=== PATIENT | female | born 1990 | race Two or more races ===

== ENCOUNTER 2021-06-30 09:22 | Observation (INO) | payer MEDICAID ==
[~2021-06-30] VITALS: Ht 157.5 cm; Wt 69.9 kg
[~2021-06-30 09:22] MED LIST: PREN1TAB71 OR
[2021-06-30 10:39] LABS: Urine WBC None Seen /hpf (0 - 5)
[2021-06-30 11:14] LABS: Urine Bacteria NONE SEEN /hpf (None Seen); Urine Blood Negative /uL (Negative); Urine Mucus FEW (None Seen); Urine Specific Gravity 1.005 (1.001-1.035)
== END 2021-06-30 10:31 | disposition home or self-care (01) ==
LOC: LDRP 09:22
PROVIDERS: ADMIT Obstetrics & Gynecology; ATTEND Obstetrics & Gynecology
DX: O99.891 Other specified diseases and conditions complicating pregnancy (principal); M54.9 Dorsalgia, unspecified; R10.9 Unspecified abdominal pain; Z3A.24 24 weeks gestation of pregnancy
CPT/HCPCS: 59025; 81001; 81002; 87086; 94760; G0378; G0379

== ENCOUNTER 2021-10-17 08:47 | Inpatient (IN) | payer MEDICAID ==
[~2021-10-17] VITALS: Ht 154.9 cm; Wt 78.9 kg
[2021-10-17] MEDS ORDERED: LACT. RINGERS/OXYTOCIN 20UNITS 500 ML IV ONE ×2 (14:30→15:00)
[2021-10-17] MEDS ORDERED: LACTATED RINGER'S 1,000 ML IV SCH (14:30)
[2021-10-17] MEDS ORDERED: PHISODERM TOP SOLN 240ML BTL TOP PRN (14:30)
[2021-10-17] MEDS ORDERED: LIDOCAINE 2%HCL (LOCAL ANESTH.) INJ 20ML MDV IJ PRN (14:30)
[2021-10-17] MEDS ORDERED: WITCH HAZEL-GLYCERIN PAD TOP PRN (14:30)
[2021-10-17 15:46] LABS: Urine Bacteria NONE SEEN /hpf (None Seen); Urine Blood Negative /uL (Negative); Urine Mucus FEW (None Seen); Urine Specific Gravity 1.022 (1.001-1.035); Urine WBC 1 /hpf (0 - 5)
[2021-10-17 15:47] LABS: Basophils # (auto) 0 10 ^3/uL (0-0.2); Basophils % (auto) 0.2 % (0.0-2.0); Eosinophils # (auto) 0 10 ^3/uL (0-0.8); Eosinophils % (auto) 0.2 % (0.0-7.0); Hematocrit 36.9 % (36.0-46.0); Hemoglobin 12.3 g/dL (12.2-16.2); Lymphocytes % (auto) 15.2 % (10.0-50.0); Mean Corpuscular Hemoglobin 30.6 pg (28.0-32.0); Mean Corpuscular Hgb Conc. 33.2 g/dL (32.0-36.0); Mean Corpuscular Volume 92.3 fL (80.0-100.0); Monocytes # (auto) 0.6 10 ^3/uL (0-1.3); Monocytes % (auto) 4.7 % (0.0-12.0); Neutrophils # (auto) 10.6 10 ^3/uL (1.6-8.6); Neutrophils % (auto) 79.7 % (37.0-80.0); Red Cell Distribution Width 14.7 % (11.8-14.3); White Blood Cell 13.3 10^3/uL (4.4-10.8)
[2021-10-17 15:59] LABS: INR 0.9 (0.9-1.15); Partial Thromboplastin Time 26.8 sec (23.6-33.0)
[2021-10-17 16:05] LABS: Albumin 2.9 g/dL (3.4-5.0); Calcium 8.6 mg/dL (8.5-10.1); Potassium 3.6 mmol/L (3.5-5.1)
[2021-10-17 16:08] LABS: BUN/Creatinine Ratio 13.3; Bilirubin, Total 0.6 mg/dL (0.2-1.0)
[2021-10-17 16:23] LABS: Alcohol, Urine < 3.0 mg/dL (0-10); Amphetamine Screen, Urine NEGATIVE (NEGATIVE); Barbiturate Scree,Urine NEGATIVE (NEGATIVE); Benzodiazephine Screen, Urine NEGATIVE (NEGATIVE); Cannabinoid Screen, Urine NEGATIVE (NEGATIVE); Cocaine Screen, Urine NEGATIVE (NEGATIVE); Opiate Scree,Urine NEGATIVE (NEGATIVE); Phencyclidine Screen, Urine NEGATIVE (NEGATIVE)
[2021-10-17] MEDS ORDERED: ONDANSETRON ODT 4 MG TAB PO PRN (16:30)
[2021-10-17] MEDS ORDERED: ACETAMINOPHEN 325 MG TAB PO PRN (16:30)
[2021-10-17] MEDS: DERMOPLAST 60ML BOTTLE TOP PRN (17:39)
[2021-10-17] MEDS: IBUPROFEN 600 MG TAB PO SCH ×2 (18:21→23:41)
[2021-10-17 19:00] VITALS: BP 103/50
[2021-10-17] MEDS ORDERED: DOCUSATE SOD 100 MG CAP PO SCH (22:00)
[2021-10-17 23:20] VITALS: BP 108/61
[2021-10-18 03:15] VITALS: BP 102/61
[2021-10-18] MEDS: IBUPROFEN 600 MG TAB PO SCH ×3 (05:38→18:35)
[2021-10-18 06:06] LABS: RPR Non Reactive (Non Reactive)
[2021-10-18] MEDS ORDERED: DOCU100C10 PO (06:14)
[2021-10-18] MEDS ORDERED: IBU600T PO (06:14)
[2021-10-18 07:17] VITALS: BP 114/59
[2021-10-18 10:30] VITALS: BP 107/59
[2021-10-18 14:41] VITALS: BP 119/65
[2021-10-18] MEDS: DERMOPLAST 60ML BOTTLE TOP PRN (19:43)
== END 2021-10-18 18:57 | disposition home or self-care (01) | DRG 560 ==
LOC: LDRP 13:51 → OBSVTOIN 14:20
PROVIDERS: ADMIT Obstetrics & Gynecology Obstetrics; ATTEND Obstetrics & Gynecology Obstetrics
PROC: 10E0XZZ Delivery of Products of Conception, External Approach (ICD-10-PCS; principal; 2021-10-17)
PROC: 0HQ9XZZ Repair Perineum Skin, External Approach (ICD-10-PCS; 2021-10-17)
DX: O48.0 Post-term pregnancy (principal); Z37.0 Single live birth; O70.0 First degree perineal laceration during delivery; Z20.822 Contact with and (suspected) exposure to COVID-19; Z3A.40 40 weeks gestation of pregnancy; Z91.013 Allergy to seafood
CPT/HCPCS: 36415; 59025; 59409; 80053; 80307; 81001; 81002; 85025; 85610; 85730; 86592; 86850; 86900; 86901; 87426; 94760; 96360; 96361; 96365; 96366; G0378; J2590